=== PATIENT | female | born 1940 | race Caucasian/White ===

== ENCOUNTER 2016-07-23 12:25 | Outpatient (CLI) | payer OTHER ==
[2016-07-23 20:19] LABS: Bilirubin Negative (Negative); Blood, Urine Negative (Negative); Glucose, Urine (Dipstick) Negative (Negative); Ketone, Urine Negative (Negative); Nitrite Negative (Negative); Protein, Urine (Dipstick) Negative (Neg-Trace); Urobilinogen 0.2 mg/dL (0.2-1.0)
[2016-07-23 21:08] LABS: Bacteria/HPF None Seen HPF (None Seen); RBC/HPF None Seen HPF (0-3); Squamous Epithelial None Seen HPF (0-3); WBC/HPF None Seen HPF (0-3)
== END 2016-07-23 12:26 | disposition home or self-care (01) ==
LOC: LABLEX 12:25
PROVIDERS: ATTEND Family Medicine
DX: N39.41 Urge incontinence (principal); R32 Unspecified urinary incontinence
CPT/HCPCS: 81001; 87086

== ENCOUNTER 2016-11-17 11:12 | Emergency (ER) | payer MEDICARE, OTHER ==
[2016-11-17 12:04] LABS: #Basophils 0.1 thou/uL (0.0-0.2); #Eosinphils 0.2 thou/uL (0.0-0.7); #Lymphocytes 3.1 thou/uL (1.20-3.40); #Monocytes 0.8 thou/uL (0.11-0.59); #Neutrophils 3.8 thou/uL (1.40-6.50); %Eosinophils 3.1 % (0.0-10.0); %Lymphocytes 38.9 % (21.0-51.0); %Monocytes 10.1 % (0.0-10.0); Hemoglobin 15.6 g/dL (12.0-16.0); Mean Corpuscular HGB CONC 33.9 g/dL (32.0-36.0); Mean Corpuscular Hemoglobin 31.1 pg (27.0-31.0); Mean Corpuscular Volume 91.8 fl (81.0-99.0); Mean Platelet Volume 5.9 fL (7.4-10.4); Platelet Count 264 thou/uL (130-400); RBC Distribution Width 12.3 % (11.5-14.5); Red Blood Cell (RBC) Count 5.02 mill/uL (4.20-5.40)
[2016-11-17 12:04] LABS: Bilirubin Negative (Negative); Blood, Urine Negative (Negative); Clarity Clear (Clear); Glucose, Urine (Dipstick) Negative (Negative); Leukocyte Small (Negative); Nitrite Negative (Negative); Protein, Urine (Dipstick) Negative (Neg-Trace); Specific Gravity, Urine 1.015 (1.005-1.030); Urobilinogen 0.2 mg/dL (0.2-1.0); pH, Urine 6.5 (5.0-9.0)
[2016-11-17 12:21] LABS: Bacteria/HPF Rare-Few HPF (None Seen); RBC/HPF None Seen HPF (0-3); Renal Epithelial 0-3 HPF (0-3); Squamous Epithelial 0-3 HPF (0-3); WBC/HPF 0-3 HPF (0-3)
[2016-11-17] MEDS ORDERED: Ketorolac Tromethamine 30 MG/ML VIAL ONE (12:35)
[2016-11-17 12:49] LABS: ALT (SGPT) 21 U/L (8-55); AST (SGOT) 20 U/L (5-34); Albumin 4.4 g/dL (3.4-4.8); Alkaline Phosphatase 79 U/L (40-150); Anion Gap 14 mmol/L (10-20); BUN (Urea Nitrogen) 16 mg/dL (9.8-20.1); Bilirubin, Total 0.3 mg/dL (0.2-1.2); Calc. Creatinine Clearance 0 mL/min (70-130); Calcium 10.8 mg/dL (7.8-10.44); Carbon Dioxide 26 mmol/L (23-31); Chloride 106 mmol/L (98-107); Estimated GFR-MDRD 76; Globulin 3.5 g/dL (2.4-3.5); Glucose 103 mg/dL (83-110); Potassium 4.8 mmol/L (3.5-5.1); Protein, Total 7.9 g/dL (6.0-8.3); Sodium 141 mmol/L (136-145)
[2016-11-17 12:50] LABS: CKMB 3.1 ng/mL (0-6.6); Troponin I Less than 0.010 ng/mL (< 0.028)
--- NOTE | 2016-11-17 17:08 | CT ---
CT OF THE BRAIN WITHOUT CONTRAST 11/17/2016 Comparison is made with the 01/05/2014 study. The ventricles are normal in size with no shift. No i ntracranial bleeding, mass, or sign of acute stroke was found. A vague low-density area in the left frontal lobe was present before and has not changed. It could be an old area of ischemia. IMPRESSION: Stable exam showing no acute findings. POS: HOME
--- NOTE | 2016-11-17 17:29 | CT ---
CT CERVICAL SPINE 11/17/[address] of the cervical spine was performed for evaluation of neck pain. The patient has had a pr ior anterior cervical fusion of the C3 through C6 levels. The fusion appears intact and has a alida l postoperative appearance. No fracture, dislocation, or vertebral malalignment was appreciated. The C1 to dens distance is nor mal, and the soft tissues are normal in thickness. Findings by level follow: C1-C2: Unremarkable. C2-C3: Slight disk space narrowing and mild left facet arthritis. Minor left foraminal narrowing. C3-C4: Mild right foraminal narrowing and moderate left foraminal narrowing. Some osteophyte prese nt posteriorly, but the AP diameter of the canal at this level is 10-11 mm. C4-C5: Significant left facet arthritis. Moderate right foraminal stenosis and moderate to severe left foraminal stenosis, C5-C6: Mild to moderate right foraminal stenosis and moderate left foraminal stenosis. Osteophyte centrally narrows the AP diameter of the canal to 9-10 mm. C6-C7: Mild right foraminal narrowing. C7-T1: No acute findings. T1-T2: No acute findings. Lung apices are clear. IMPRESSION: Postoperative and degenerative changes of the cervical spine is noted with multilevel f oraminal stenosis. No acute change were appreciated. POS: HOME
== END 2016-11-17 13:02 | disposition home or self-care (01) ==
LOC: BURERS 11:12
DX: M54.12 Radiculopathy, cervical region (principal); K51.90 Ulcerative colitis, unspecified, without complications; K21.9 Gastro-esophageal reflux disease without esophagitis; I10 Essential (primary) hypertension; E78.5 Hyperlipidemia, unspecified; E78.00 Pure hypercholesterolemia, unspecified; Z79.899 Other long term (current) drug therapy
CPT/HCPCS: 36415; 70450; 72125; 80053; 81003; 81015; 82553; 84484; 85025; 93005; 96374; J1885

== ENCOUNTER 2016-12-01 12:03 | Outpatient (CLI) | payer MEDICARE, OTHER ==
[2016-12-01 16:42] LABS: ALT (SGPT) 22 U/L (8-55); AST (SGOT) 23 U/L (5-34); Albumin 4.5 g/dL (3.4-4.8); Alkaline Phosphatase 77 U/L (40-150); Anion Gap 13 mmol/L (10-20); BUN (Urea Nitrogen) 15 mg/dL (9.8-20.1); Bilirubin, Total 0.4 mg/dL (0.2-1.2); Calc. Creatinine Clearance 0 mL/min (70-130); Calcium 10.4 mg/dL (7.8-10.44); Carbon Dioxide 29 mmol/L (23-31); Chloride 103 mmol/L (98-107); Cholesterol 174 mg/dl (< 200 Desired); Estimated GFR-MDRD 71; Globulin 3.2 g/dL (2.4-3.5); Glucose 98 mg/dL (83-110); HDL Cholesterol 43 mg/dL (>60 Neg Risk); LDL Cholesterol, Calculated 96 mg/dL; Potassium 4.8 mmol/L (3.5-5.1); Protein, Total 7.7 g/dL (6.0-8.3); Sodium 140 mmol/L (136-145); Triglycerides 176 mg/dL (Less than 150)
[2016-12-01 17:28] LABS: Thyroid Stimulating Hormone 1.5587 uIU/mL (0.35-4.94); Vitamin D, 25 Hydroxy 30.4 ng/ml (> 30.0)
== END 2016-12-01 12:04 | disposition home or self-care (01) ==
LOC: LABLEX 12:03
PROVIDERS: ATTEND Family Medicine
DX: E78.5 Hyperlipidemia, unspecified (principal); I10 Essential (primary) hypertension; E83.52 Hypercalcemia
CPT/HCPCS: 80053; 80061; 82306; 83970; 84443

== ENCOUNTER 2017-05-27 15:09 | Emergency (ER) | payer MEDICARE, MEDICAID ==
[2017-05-27] MEDS ORDERED: Ondansetron ODT 4 MG TAB ONE (16:05)
[2017-05-27] MEDS ORDERED: predniSONE 20 MG TAB ONE (16:16)
--- NOTE | 2017-05-27 22:51 | RAD ---
LEFT SHOULDER THREE VIEWS 05/27/17 No acute fracture was seen and there is no dislocation. There is some calcification just outside the humeral head that could be in tendons and signify calcific tendoni tis. The articular surfaces of the humeral head are not optimally displayed and would be better seen on MRI. There is some mild degenerative change in the AC joint. Degenerative changes are noted in the patient's cervical spine. IMPRESSION: Possible calcific tendonitis. POS: HOME
== END 2017-05-27 16:41 | disposition home or self-care (01) ==
LOC: EDBD → BURERS 15:09
DX: M19.012 Primary osteoarthritis, left shoulder (principal); M85.812 Other specified disorders of bone density and structure, left shoulder; K51.90 Ulcerative colitis, unspecified, without complications; E78.5 Hyperlipidemia, unspecified; K21.9 Gastro-esophageal reflux disease without esophagitis; I10 Essential (primary) hypertension; Z79.891 Long term (current) use of opiate analgesic; Z79.899 Other long term (current) drug therapy
CPT/HCPCS: 93005; 96372; J2270; J7506; Q0162

== ENCOUNTER 2017-06-09 03:02 | Emergency (ER) | payer MEDICARE, MEDICAID ==
[2017-06-09] MEDS ORDERED: Ondansetron HCl/PF 4 MG/2 ML Vial ONE (03:38)
[2017-06-09] MEDS ORDERED: Famotidine In NaCl 20 mg/50 ml Premix Bag ONE ×2 (03:41→03:43)
[2017-06-09 04:26] LABS: #Basophils 0.1 thou/uL (0.0-0.2); #Eosinphils 0.2 thou/uL (0.0-0.7); #Lymphocytes 1.8 thou/uL (1.20-3.40); #Monocytes 0.7 thou/uL (0.11-0.59); #Neutrophils 8.8 thou/uL (1.40-6.50); %Basophils 0.6 % (0.0-1.0); %Eosinophils 1.6 % (0.0-10.0); %Lymphocytes 15.2 % (21.0-51.0); %Monocytes 6.4 % (0.0-10.0); %Neutrophils 76.2 % (42.0-75.0); Band 4 % (5-11); Eosinophils 1 % (0-10); Hemoglobin 14.8 g/dL (12.0-16.0); Lymphocytes 20 % (21-51); MDiff Complete? YES; Mean Corpuscular HGB CONC 33.5 g/dL (32.0-36.0); Mean Corpuscular Volume 92.3 fl (81.0-99.0); Mean Platelet Volume 5.1 fL (7.4-10.4); Monocytes 6 % (0-10); Neutrophil 69 % (42-75); PLT Morphology Comment Appears Adequate; Platelet Count 236 thou/uL (130-400); RBC Morphology Normal; Red Blood Cell (RBC) Count 4.77 mill/uL (4.20-5.40); White Blood Cell (WBC) Count 11.5 thou/uL (4.8-10.8)
[2017-06-09 04:36] LABS: ALT (SGPT) 18 U/L (8-55); AST (SGOT) 15 U/L (5-34); Alkaline Phosphatase 72 U/L (40-150); Anion Gap 14 mmol/L (10-20); BUN (Urea Nitrogen) 11 mg/dL (9.8-20.1); Bilirubin, Total 0.3 mg/dL (0.2-1.2); Calc. Creatinine Clearance 0 mL/min (70-130); Calcium 10.3 mg/dL (7.8-10.44); Carbon Dioxide 24 mmol/L (23-31); Chloride 106 mmol/L (98-107); Estimated GFR-MDRD 76; Globulin 3.1 g/dL (2.4-3.5); Glucose 136 mg/dL (83-110); Lipase 13 U/L (8-78); Potassium 4.3 mmol/L (3.5-5.1); Protein, Total 7.1 g/dL (6.0-8.3); Sodium 140 mmol/L (136-145)
[2017-06-09 04:53] LABS: Bilirubin Negative (Negative); Blood, Urine Negative (Negative); Clarity Slightly Cloudy (Clear); Glucose, Urine (Dipstick) Negative (Negative); Leukocyte Small (Negative); Nitrite Negative (Negative); Protein, Urine (Dipstick) Negative (Neg-Trace); Specific Gravity, Urine 1.015 (1.005-1.030); Urobilinogen 0.2 mg/dL (0.2-1.0); pH, Urine 7.5 (5.0-9.0)
[2017-06-09 04:58] LABS: Bacteria/HPF 1+ HPF (None Seen); RBC/HPF None Seen HPF (0-3); Squamous Epithelial None Seen HPF (0-3); WBC/HPF 0-3 HPF (0-3)
[2017-06-09 04:59] LABS: Crystals/HPF 3+ AMORPH PHOS HPF (Negative)
== END 2017-06-09 05:30 | disposition home or self-care (01) ==
LOC: BURERS 03:02 → EDBD 03:02 → BURERS 05:30
DX: R11.2 Nausea with vomiting, unspecified (principal); R19.7 Diarrhea, unspecified; K58.9 Irritable bowel syndrome, unspecified; E78.5 Hyperlipidemia, unspecified; K21.9 Gastro-esophageal reflux disease without esophagitis; I10 Essential (primary) hypertension; I49.9 Cardiac arrhythmia, unspecified; Z79.891 Long term (current) use of opiate analgesic; Z79.899 Other long term (current) drug therapy
CPT/HCPCS: 36415; 80053; 81003; 81015; 83690; 85025; 96365; 96375; J2405

== ENCOUNTER 2020-06-18 11:28 | Emergency (ER) | payer MEDICARE, OTHER ==
[2020-06-18] MEDS ORDERED: Acetaminophen 500 MG TAB ONE (11:44)
[2020-06-18] MEDS ORDERED: Ondansetron ODT 4 MG TAB ONE (11:44)
--- NOTE | 2020-06-18 14:57 | CT ---
CT OF THE BRAIN WITHOUT CONTRAST: 06/18/20 The ventricles are normal in size with no shift. No intracranial bleeding or extra-axial hematoma was seen. There was a soft tissue area of swelling over the left forehead. The underlying skull appears intact. See CT of the face for comments on facial bones. IMPRESSION: No acute intracranial findings. Preliminary report called to Dr. Manzanares at 1215 on 06/18/20. POS: HOME
--- NOTE | 2020-06-18 15:00 | CT ---
CT OF THE FACIAL BONES 06/18/[address] of the face was performed following trauma. There are fractures of the nasal bones anterior ly, particularly on the right and there is deviation of the nasal septum towards the right. My suspic ion is that this is a combination of both old and new injuries. Aside from this; however, the facial bones are otherwise intact. The orbital rims, zygomatic arches, maxilla and mandible all appeared int act. The retro-orbital areas are normal in appearance. The paranasal sinuses are clear except for keila e very mild amounts of mucosal thickening in some of the sinuses. IMPRESSION: Nasal fractures and septal deviation, possibly both old and new. Preliminary report called to Dr. Manzanares at 1215 on 06/18/20. POS: HOME
--- NOTE | 2020-06-18 15:03 | CT ---
CT OF THE CERVICAL SPINE: DATE: 06/18/2020. FINDINGS: Spiral CT of the cervical spine showed no fracture, dislocation, or acute bony change. The C1 to den s distance is normal and the soft tissues are normal in thickness. There has been a prior anterior c ervical fusion at C3 through C6. Degenerative changes are prominent throughout this patient's entire cervical spine with multilevel foraminal stenosis bilaterally beginning at the C3-C4 level and exten ding through the remainder of the cervical spine. No hematoma was seen. The lung apices showed no p neumothorax. IMPRESSION: Postoperative and extensive degenerative changes, but no acute traumatic findings. Preliminary report called to Dr. Manzanares at 1215 on 06/18/2020. CODE CR POS: HOME
--- NOTE | 2020-06-18 16:21 | RAD ---
RIGHT KNEE FOUR VIEWS: 06/18/20 A knee arthroplasty is in place. No fracture or signs of loosening were found. IMPRESSION: No acute bony finding. POS: HOME
--- NOTE | 2020-06-18 16:27 | RAD ---
LEFT KNEE FOUR VIEWS: 06/18/20 No fracture or dislocation was seen. The knee arthroplasty shows no sign of loosening. Its placement is appropriate. IMPRESSION: No acute findings. POS: HOME
--- NOTE | 2020-06-18 16:28 | RAD ---
LEFT HIP TWO VIEWS: 06/18/20 No fracture or dislocation was seen. The joint space is normal in width for age. IMPRESSION: No acute traumatic finding. POS: HOME
== END 2020-06-18 13:55 | disposition home or self-care (01) ==
LOC: BURERS 11:28
DX: S02.2XXA Fracture of nasal bones, initial encounter for closed fracture (principal); S73.102A Unspecified sprain of left hip, initial encounter; S13.4XXA Sprain of ligaments of cervical spine, initial encounter; S16.1XXA Strain of muscle, fascia and tendon at neck level, initial encounter; S00.83XA Contusion of other part of head, initial encounter; S80.02XA Contusion of left knee, initial encounter; S80.01XA Contusion of right knee, initial encounter; K21.9 Gastro-esophageal reflux disease without esophagitis; Z79.899 Other long term (current) drug therapy; W18.30XA Fall on same level, unspecified, initial encounter
CPT/HCPCS: 70450; 70486; 72125; Q0162

== ENCOUNTER 2020-10-05 18:30 | Emergency (ER) | payer MEDICARE, OTHER ==
[2020-10-05] MEDS ORDERED: Ondansetron PF 4 MG/2 ML Vial ONE (18:42)
[2020-10-05] MEDS ORDERED: Ketorolac Tromethamine 30 MG/ML VIAL ONE (18:42)
[2020-10-05 19:10] LABS: #Basophils 0.1 thou/uL (0.0-0.2); #Eosinphils 0.1 thou/uL (0.0-0.7); #Lymphocytes 1.5 thou/uL (1.20-3.40); #Monocytes 0.8 thou/uL (0.11-0.59); %Basophils 0.4 % (0.0-1.0); %Eosinophils 0.5 % (0.0-10.0); %Lymphocytes 9.9 % (21.0-51.0); %Monocytes 5.1 % (0.0-10.0); %Neutrophils 84.1 % (42.0-75.0); Hemoglobin 13.9 g/dL (12.0-16.0); Mean Corpuscular HGB CONC 33.4 g/dL (32.0-36.0); Mean Corpuscular Hemoglobin 30.8 pg (27.0-31.0); Mean Corpuscular Volume 92.3 fL (78.0-98.0); Mean Platelet Volume 5.8 fL (7.4-10.4); Platelet Count 263 thou/uL (130-400); RBC Distribution Width 12.7 % (11.5-14.5); White Blood Cell (WBC) Count 15.4 thou/uL (4.8-10.8)
[2020-10-05 19:43] LABS: ALT (SGPT) 16 U/L (8-55); AST (SGOT) 18 U/L (5-34); Albumin 4.2 g/dL (3.4-4.8); Alkaline Phosphatase 109 U/L (40-110); Anion Gap 16 mmol/L (10-20); BUN (Urea Nitrogen) 16 mg/dL (9.8-20.1); Bilirubin, Total 0.3 mg/dL (0.2-1.2); Calc. Creatinine Clearance 0 mL/min (70-130); Calcium 11.5 mg/dL (7.8-10.44); Carbon Dioxide 25 mmol/L (23-31); Chloride 105 mmol/L (98-107); Globulin 2.9 g/dL (2.4-3.5); Glucose 146 mg/dL (83-110); Lipase 6 U/L (8-78); Potassium 4.5 mmol/L (3.5-5.1); Protein, Total 7.1 g/dL (5.8-8.1); Sodium 141 mmol/L (136-145)
[2020-10-05 19:48] LABS: Bilirubin Negative (Negative); Blood, Urine Moderate (Negative); Clarity Cloudy (Clear); Glucose, Urine (Dipstick) Negative (Negative); Ketone, Urine Negative (Negative); Leukocyte Trace (Negative); Nitrite Positive (Negative); Protein, Urine (Dipstick) Negative (Neg-Trace); Specific Gravity, Urine 1.025 (1.005-1.030); Urobilinogen 0.2 mg/dL (Less than 2); pH, Urine 7.5 (5.0-9.0)
[2020-10-05 19:57] LABS: Bacteria/HPF 3+ HPF (None Seen); Squamous Epithelial 0-3 HPF (0-3); Transitional Epithelial 0-3 HPF (None Seen)
[2020-10-05] MEDS ORDERED: cefTRIAXone\\ROCEPHIN 2 GM VIAL ONE (20:51)
[2020-10-05] MEDS ORDERED: Sodium Chloride 0.9% 100 ML ONE (20:52)
[2020-10-05] MEDS ORDERED: Sodium Chloride 0.9% 0 ML ONE (20:52)
[2020-10-05 21:37] LABS: Bilirubin Negative (Negative); Blood, Urine Moderate (Negative); Clarity Clear (Clear); Glucose, Urine (Dipstick) Negative (Negative); Ketone, Urine Negative (Negative); Leukocyte Trace (Negative); Nitrite Negative (Negative); Protein, Urine (Dipstick) Negative (Neg-Trace); Urobilinogen 0.2 mg/dL (Less than 2); pH, Urine 7.5 (5.0-9.0)
[2020-10-05 21:45] LABS: Bacteria/HPF 2+ HPF (None Seen); Squamous Epithelial 0-3 HPF (0-3); WBC/HPF 0-3 HPF (0-3); Yeast-Budding None Seen HPF (None Seen); Yeast-Hyphae None Seen HPF (None Seen)
[2020-10-05 21:46] LABS: Mucous/LPF None Seen LPF (<2+)
== END 2020-10-05 23:20 | disposition short-term general hospital (02) ==
LOC: BURERS 18:30
DX: N13.2 Hydronephrosis with renal and ureteral calculous obstruction (principal); I49.9 Cardiac arrhythmia, unspecified; E78.5 Hyperlipidemia, unspecified; K21.9 Gastro-esophageal reflux disease without esophagitis; I10 Essential (primary) hypertension; R11.0 Nausea; M19.90 Unspecified osteoarthritis, unspecified site; Z79.899 Other long term (current) drug therapy; Z79.82 Long term (current) use of aspirin
CPT/HCPCS: 51701; 74176; 80053; 81003; 81015; 83605; 83690; 85025; 87040; 87077; 87086; 87186; 96365; 96375; J0696; J1885; J2405; J3490; J7050

== ENCOUNTER 2020-11-14 12:22 | Emergency (ER) | payer MEDICARE, OTHER ==
[2020-11-14 13:00] LABS: #Eosinphils 0.1 thou/uL (0.0-0.7); #Lymphocytes 1.3 thou/uL (1.20-3.40); #Monocytes 0.5 thou/uL (0.11-0.59); #Neutrophils 5.1 thou/uL (1.40-6.50); %Basophils 0.7 % (0.0-1.0); %Eosinophils 1.7 % (0.0-10.0); %Lymphocytes 18.3 % (21.0-51.0); %Monocytes 6.8 % (0.0-10.0); %Neutrophils 72.5 % (42.0-75.0); Hemoglobin 12.8 g/dL (12.0-16.0); Mean Corpuscular HGB CONC 33.4 g/dL (32.0-36.0); Mean Corpuscular Hemoglobin 30.8 pg (27.0-31.0); Mean Corpuscular Volume 92.1 fL (78.0-98.0); Mean Platelet Volume 5.1 fL (7.4-10.4); Platelet Count 248 thou/uL (130-400); RBC Distribution Width 12.6 % (11.5-14.5); Red Blood Cell (RBC) Count 4.16 mill/uL (4.20-5.40); White Blood Cell (WBC) Count 7.1 thou/uL (4.8-10.8)
[2020-11-14 13:15] LABS: ALT (SGPT) 17 U/L (8-55); AST (SGOT) 19 U/L (5-34); Albumin 3.9 g/dL (3.4-4.8); Alkaline Phosphatase 84 U/L (40-110); Anion Gap 13 mmol/L (10-20); BUN (Urea Nitrogen) 14 mg/dL (9.8-20.1); Bilirubin, Total 0.3 mg/dL (0.2-1.2); Calc. Creatinine Clearance 0 mL/min (70-130); Calcium 10.4 mg/dL (7.8-10.44); Carbon Dioxide 27 mmol/L (23-31); Chloride 104 mmol/L (98-107); Globulin 3.1 g/dL (2.4-3.5); Glucose 109 mg/dL (83-110); Lipase 10 U/L (8-78); Potassium 4.9 mmol/L (3.5-5.1); Sodium 139 mmol/L (136-145)
[2020-11-14 13:52] LABS: Bilirubin Negative (Negative); Blood, Urine Negative (Negative); Clarity Clear (Clear); Glucose, Urine (Dipstick) Negative (Negative); Ketone, Urine Negative (Negative); Leukocyte Trace (Negative); Nitrite Negative (Negative); Protein, Urine (Dipstick) Negative (Neg-Trace); Urobilinogen 0.2 mg/dL (Less than 2)
[2020-11-14 13:59] LABS: RBC/HPF None Seen HPF (0-3); WBC/HPF 0-3 HPF (0-3)
[2020-11-14 14:00] LABS: Bacteria/HPF Rare-Few HPF (None Seen); Squamous Epithelial 0-3 HPF (0-3)
[2020-11-14] MEDS ORDERED: Iopamidol 370 76% 100 ML VIAL ONE (16:09)
== END 2020-11-14 16:39 | disposition home or self-care (01) ==
LOC: BURERS 12:22
DX: R11.2 Nausea with vomiting, unspecified (principal); R53.1 Weakness; K21.9 Gastro-esophageal reflux disease without esophagitis; E78.5 Hyperlipidemia, unspecified; E78.00 Pure hypercholesterolemia, unspecified; I10 Essential (primary) hypertension; Z79.82 Long term (current) use of aspirin; Z79.899 Other long term (current) drug therapy
CPT/HCPCS: 70450; 74177; 80053; 81003; 81015; 83605; 83690; 85025; 93005; Q9967

== ENCOUNTER 2021-03-03 20:21 | Emergency (ER) | payer MEDICARE, MEDICAID ==
[2021-03-03 20:45] LABS: Bilirubin Negative (Negative); Blood, Urine Trace (Negative); Clarity Clear (Clear); Glucose, Urine (Dipstick) Negative (Negative); Ketone, Urine Trace mg/dL (Negative); Leukocyte Negative (Negative); Nitrite Negative (Negative); Protein, Urine (Dipstick) Negative (Neg-Trace); Urobilinogen 0.2 mg/dL (Less than 2); pH, Urine 7.5 (5.0-9.0)
[2021-03-03 20:51] LABS: Bacteria/HPF 1+ HPF (None Seen); RBC/HPF 0-3 HPF (0-3); Squamous Epithelial 0-3 HPF (0-3); WBC/HPF 0-3 HPF (0-3)
== END 2021-03-03 22:05 | disposition home or self-care (01) ==
LOC: BURERS 20:21
DX: R11.10 Vomiting, unspecified (principal); K21.9 Gastro-esophageal reflux disease without esophagitis; E78.2 Mixed hyperlipidemia; I10 Essential (primary) hypertension
CPT/HCPCS: 80053; 81003; 81015; 84484; 85025; 93005

== ENCOUNTER 2021-08-27 11:27 | Emergency (ER) | payer MEDICARE, OTHER ==
[2021-08-27] MEDS ORDERED: Iopamidol 370 76% 100 ML VIAL FS ONE (11:28)
[2021-08-27] MEDS ORDERED: Ketorolac Tromethamine 30 MG/ML VIAL ONE (12:11)
[2021-08-27 12:19] LABS: #Basophils 0.1 thou/uL (0.0-0.2); #Eosinphils 0.1 thou/uL (0.0-0.7); #Monocytes 0.4 thou/uL (0.11-0.59); #Neutrophils 3.4 thou/uL (1.40-6.50); %Basophils 0.9 % (0.0-1.0); %Lymphocytes 33.3 % (21.0-51.0); %Monocytes 7.2 % (0.0-10.0); %Neutrophils 56.7 % (42.0-75.0); Hemoglobin 15.2 g/dL (12.0-16.0); Mean Corpuscular HGB CONC 32.9 g/dL (32.0-36.0); Mean Corpuscular Hemoglobin 31.3 pg (27.0-31.0); Mean Platelet Volume 5.4 fL (7.4-10.4); Platelet Count 246 thou/uL (130-400); RBC Distribution Width 13.1 % (11.5-14.5); Red Blood Cell (RBC) Count 4.87 mill/uL (4.20-5.40); White Blood Cell (WBC) Count 5.9 thou/uL (4.8-10.8)
[2021-08-27 12:24] LABS: Bilirubin Negative (Negative); Blood, Urine Negative (Negative); Clarity Clear (Clear); Glucose, Urine (Dipstick) Negative (Negative); Ketone, Urine Negative (Negative); Leukocyte Small (Negative); Nitrite Positive (Negative); Protein, Urine (Dipstick) Negative (Neg-Trace); Urobilinogen 0.2 mg/dL (Less than 2); pH, Urine 7.5 (5.0-9.0)
[2021-08-27 12:36] LABS: ALT (SGPT) 20 U/L (8-55); AST (SGOT) 22 U/L (5-34); Albumin 4.4 g/dL (3.4-4.8); Alkaline Phosphatase 80 U/L (40-110); Anion Gap 15 mmol/L (10-20); BUN (Urea Nitrogen) 11 mg/dL (9.8-20.1); Bilirubin, Total 0.5 mg/dL (0.2-1.2); Calc. Creatinine Clearance 0 mL/min (70-130); Calcium 10.9 mg/dL (7.8-10.44); Carbon Dioxide 23 mmol/L (23-31); Chloride 107 mmol/L (98-107); Globulin 3.8 g/dL (2.4-3.5); Glucose 100 mg/dL (83-110); Potassium 4.2 mmol/L (3.5-5.1); Protein, Total 8.2 g/dL (5.8-8.1); Sodium 141 mmol/L (136-145)
[2021-08-27 12:37] LABS: RBC/HPF None Seen HPF (0-3); Squamous Epithelial 0-3 HPF (0-3)
[2021-08-27 12:38] LABS: Bacteria/HPF 2+ HPF (None Seen)
[2021-08-27] MEDS ORDERED: Aspirin Chewable 81 MG TAB ONE (13:00)
[2021-08-27] MEDS ORDERED: cefTRIAXone\\ROCEPHIN 1 GM VIAL ONE (13:00)
[2021-08-27] MEDS ORDERED: Sodium Chloride 0.9% 100 ML ONE (13:00)
== END 2021-08-27 14:27 | disposition short-term general hospital (02) ==
LOC: BURERS 11:27
DX: M79.605 Pain in left leg (principal); M79.604 Pain in right leg; R79.1 Abnormal coagulation profile; K21.9 Gastro-esophageal reflux disease without esophagitis; E78.2 Mixed hyperlipidemia; I10 Essential (primary) hypertension; M19.90 Unspecified osteoarthritis, unspecified site; Z79.82 Long term (current) use of aspirin; Z79.899 Other long term (current) drug therapy
CPT/HCPCS: 36415; 71275; 80053; 81003; 81015; 85025; 85379; 96365; J0696; J1885; J3490; Q9967

== ENCOUNTER 2021-11-13 15:24 | Emergency (ER) | payer OTHER ==
[2021-11-13] MEDS ORDERED: traMADol HCl 50 MG TAB ONE (17:02)
== END 2021-11-13 17:40 | disposition home or self-care (01) ==
LOC: BURERS 15:24
DX: S70.02XA Contusion of left hip, initial encounter (principal); S90.31XA Contusion of right foot, initial encounter; K21.9 Gastro-esophageal reflux disease without esophagitis; E78.2 Mixed hyperlipidemia; I10 Essential (primary) hypertension; M19.90 Unspecified osteoarthritis, unspecified site; Z79.899 Other long term (current) drug therapy; W18.30XA Fall on same level, unspecified, initial encounter

== ENCOUNTER 2022-01-07 09:37 | Emergency (ER) | payer OTHER ==
[2022-01-07 10:10] LABS: #Basophils 0.1 thou/uL (0.0-0.2); #Eosinphils 0.2 thou/uL (0.0-0.7); #Lymphocytes 1.9 thou/uL (1.20-3.40); #Monocytes 0.5 thou/uL (0.11-0.59); #Neutrophils 5.2 thou/uL (1.40-6.50); %Basophils 0.8 % (0.0-1.0); %Eosinophils 2.1 % (0.0-10.0); %Lymphocytes 24.4 % (21.0-51.0); %Monocytes 6.8 % (0.0-10.0); %Neutrophils 65.9 % (42.0-75.0); Hemoglobin 15.3 g/dL (12.0-16.0); Mean Corpuscular HGB CONC 33.8 g/dL (32.0-36.0); Mean Corpuscular Hemoglobin 31.6 pg (27.0-31.0); Mean Corpuscular Volume 93.5 fL (78.0-98.0); Mean Platelet Volume 5.4 fL (7.4-10.4); Platelet Count 262 thou/uL (130-400); RBC Distribution Width 12.8 % (11.5-14.5); Red Blood Cell (RBC) Count 4.84 mill/uL (4.20-5.40); White Blood Cell (WBC) Count 7.9 thou/uL (4.8-10.8)
[2022-01-07 10:21] LABS: PTT 29.2 sec (22.9-36.1)
[2022-01-07 10:24] LABS: ALT (SGPT) 19 U/L (8-55); AST (SGOT) 17 U/L (5-34); Albumin 4.4 g/dL (3.4-4.8); Alkaline Phosphatase 93 U/L (40-110); Anion Gap 15 mmol/L (10-20); BUN (Urea Nitrogen) 12 mg/dL (9.8-20.1); Bilirubin, Total 0.3 mg/dL (0.2-1.2); Calc. Creatinine Clearance 0 mL/min (70-130); Carbon Dioxide 23 mmol/L (23-31); Chloride 107 mmol/L (98-107); Estimated GFR 85; Globulin 3.7 g/dL (2.4-3.5); Glucose 117 mg/dL (83-110); Potassium 3.9 mmol/L (3.5-5.1); Protein, Total 8.1 g/dL (5.8-8.1); Sodium 141 mmol/L (136-145)
[2022-01-07] MEDS ORDERED: Lidocaine 1% w/Epinephrine 1:100K 20 ML VIAL ONE (10:26)
[2022-01-07 10:55] LABS: Bilirubin Negative (Negative); Blood, Urine Trace (Negative); Clarity Slightly Cloudy (Clear); Glucose, Urine (Dipstick) Negative (Negative); Ketone, Urine Negative (Negative); Leukocyte Moderate (Negative); Nitrite Negative (Negative); Protein, Urine (Dipstick) Negative (Neg-Trace); Urobilinogen 0.2 mg/dL (Less than 2)
[2022-01-07 11:02] LABS: Bacteria/HPF 4+ HPF (None Seen); RBC/HPF 0-3 HPF (0-3); Renal Epithelial 0-3 HPF (None Seen); Squamous Epithelial 0-3 HPF (0-3); Transitional Epithelial 0-3 HPF (None Seen)
[2022-01-07] MEDS ORDERED: Boostrix 0.5 ML (Tdap) VIAL ONE (11:03)
[2022-01-07] MEDS ORDERED: Cephalexin 250 MG CAP ONE (11:12)
== END 2022-01-07 11:30 | disposition home or self-care (01) ==
LOC: BURERS 09:37
DX: S01.01XA Laceration without foreign body of scalp, initial encounter (principal); N39.0 Urinary tract infection, site not specified; K21.9 Gastro-esophageal reflux disease without esophagitis; E78.2 Mixed hyperlipidemia; M19.90 Unspecified osteoarthritis, unspecified site; Z23 Encounter for immunization; W18.30XA Fall on same level, unspecified, initial encounter
CPT/HCPCS: 12004; 36415; 70450; 71045; 72125; 80053; 81003; 81015; 85025; 85610; 85730; 87077; 87086; 87186; 90471; 90715; 93005